=== PATIENT | female | born 1960 | race Caucasian/White ===

== ENCOUNTER → 2018-01-05 | Outpatient (CLI) | payer OTHER | LOC: M.MRI 13:17 | DX: M75.101 Unspecified rotator cuff tear or rupture of right shoulder, not specified as traumatic (principal) ==

== ENCOUNTER → 2018-04-27 | Day surgery (SDC) | payer OTHER ==
[~2018-04-27] MED LIST: ASPIR 8181 MG PO; BENICAR HCT 201 EACH PO; CELEXA40 MG PO; NORCO 5-325 TA1 EACH PO; OXYCODONE HCL 55 MG PO; SYNTHROID125 MC1 PO; ZESTORETIC 20-1 EAC3 PO
--- NOTE | ~2018-04-27 | OP ---
[address] [address] OPERATIVE REPORT Name: DICK AMIN Room: [facility]#: [id number] Admission: 04/27/18 Attend Phys: Sb Zeng DO Discharge: Date of : 64 Report #: [id number] THIS REPORT FOR: //name// CC: Sb Adames DATE OF SERVICE: 04/27/2018 PREOPERATIVE DIAGNOSIS: Right shoulder rotator cuff tear with acromioclavicular arthrosis and impingement. POSTOPERATIVE DIAGNOSES: 1. Right shoulder full thickness rotator cuff tear. 2. Biceps tendinitis with degenerative type labral tear. 3. Impingement syndrome. 4. Acromioclavicular arthrosis. PROCEDURE: 1. Right shoulder arthroscopy. 2. Arthroscopic rotator cuff repair. 3. Biceps tenodesis arthroscopy. 4. Distal clavicle excision. 5. Subacromial decompression. SURGEON: Sb Zeng DO PRECIPITATOR SUPERVISOR: Denis Hansen DO. ESTIMATED BLOOD LOSS: 10 mL. ANESTHESIA: General with interscalene block. COMPLICATIONS: None. DRAINS: None. SPECIMEN REMOVED: None. ANTIBIOTICS: Ancef 2 grams IV preoperatively. CONDITION: The patient is stable to PACU. INDICATIONS FOR PROCEDURE: The patient is a very pleasant 57-year-old female seen in my clinic regarding right shoulder pain that she has had for quite some time. She unfortunately failed conservative treatment including anti-inflammatory medications, steroid injection. MRI was obtained [address] [address] OPERATIVE REPORT Name: DICK AMIN Room: [facility]#: [id number] Admission: 04/27/18 Attend Phys: Sb Zeng DO Discharge: Date of : 64 Report #: [id number] demonstrating a near full thickness rotator cuff tear. This was consistent with her symptoms. Due to failed conservative treatment, I discussed potential benefit of right shoulder arthroscopy, possible rotator cuff repair, possible biceps tenodesis, subacromial decompression, distal clavicle excision. I discussed procedure, risks, benefits, complications, indications in detail with her. Risks discussed include but not limited to infection, neurovascular injury, continued worsening pain, need for further surgery, DVT, PE, repeat tear, continued weakness, DVT, PE and anesthesia complications. She did express understanding and wished to proceed with surgery. DESCRIPTION OF PROCEDURE: After consent was obtained, the patient was taken to the operative suite and placed in the supine position on the operating room table. She was given benefit of general anesthesia, she was placed in beachchair position, all bony prominences were well padded. Right upper extremity sterilely prepped and draped in usual fashion. Preop timeout was obtained to confirm the correct patient, procedure and operative site. Surgery began with standard posterolateral portal incision. The arthroscope was introduced in the posterolateral portal. Diagnostic arthroscopy was performed noting the above findings. She did have a degenerative biceps anchor tear as well as biceps tendinitis. She also had a full thickness rotator cuff tear seen from the glenohumeral joint. This was fairly large in general. At this time, an anterior portal was established using spinal needle technique. I elected to proceed with a biceps tenodesis. We used Loop N' Tack Arthrex technique and fiber snare suture was passed through the biceps tendon. The biceps was then cut and the stump was debrided with a shaver. We then utilized a 2.9 mm PushLock and biceps tenodesis was performed at the top of the bicipital groove. This did have good purchase. The undersurface of the rotator cuff was then debrided with a shaver. We also debrided the anatomic footprint with a shaver to get to good bleeding bone. Attention was then turned subacromially. Lateral portal was established. Subacromial decompression was then performed with a shaver and Epicare wand. Dissection was taken to the AC joint. She did have some subacromial spurring and clavicle spurring at this area. A distal clavicle excision was then performed with a shaver and bur. Attention was then returned to the rotator cuff. The cuff was thoroughly inspected and again fairly large tear, approximately 2 cm in length. We elected to proceed with an Arthrex SpeedBridge fixation. Two medial row anchors were then placed just off the articular surface, both had good purchase. The FiberTape sutures were passed in 4 separate stages. This did have good purchase. These sutures were then crisscrossed and 2 lateral anchors were placed, both had good purchase. This did bring the cuff down nicely to the bone and was quite stable. Final pictures were then taken. Excess sutures were cut. The arm was taken through range of motion and again the tear was stable. The wound was then thoroughly irrigated with sterile saline. All fluid was then drained. Instruments were removed. Incisions were closed with 4-0 nylon in simple interrupted fashion. Sterile dressing was applied. She was placed in slingshot immobilizer postoperatively. [address] [address] OPERATIVE REPORT Name: DICK AMIN Room: [facility]#: [id number] Admission: 04/27/18 Attend Phys: Sb Zeng DO Discharge: Date of : 64 Report #: [id number] She did tolerate the procedure well without complications. She was taken to recovery in stable condition. All needle and sponge counts were correct x 2 at the end of the procedure. By: [id number] Zeng DO /nt
[2018-04-27 07:44] LABS: HEMOGLOBIN 13.5 gm/dL (12.0-15.0); MCH 32.3 pg (26.0-34.0); MCHC 33.7 g/dL (28.0-37.0); MCV 95.8 fL (80.0-100.0); MPV 7.6 fl. (7.2-11.1); RBC 4.17 mil/uL (4.20-5.00); WBC 6.6 thou/uL (4.0-11.0)
[2018-04-27 08:01] LABS: CALCIUM 9.3 mg/dL (8.5-10.1); POTASSIUM 4.2 mmol/L (3.5-5.1)
[2018-04-27 08:06] LABS: ALBUMIN 3.7 g/dL (3.4-5.0); TOTAL BILIRUBIN 0.4 mg/dL (<0.1-1.0)
--- NOTE | 2018-04-27 14:21 | EKG ---
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
== END | disposition home or self-care (01) ==
LOC: M.SUR 07:03
PROVIDERS: Student in an Organized Health Care Education/Training Program
DX: M75.101 Unspecified rotator cuff tear or rupture of right shoulder, not specified as traumatic (principal); M19.011 Primary osteoarthritis, right shoulder; M25.811 Other specified joint disorders, right shoulder; M75.21 Bicipital tendinitis, right shoulder; S43.491A Other sprain of right shoulder joint, initial encounter; I10 Essential (primary) hypertension; E78.5 Hyperlipidemia, unspecified; F17.210 Nicotine dependence, cigarettes, uncomplicated; E03.9 Hypothyroidism, unspecified; F41.9 Anxiety disorder, unspecified; F32.9 Major depressive disorder, single episode, unspecified; E05.00 Thyrotoxicosis with diffuse goiter without thyrotoxic crisis or storm; Z98.890 Other specified postprocedural states; Z79.82 Long term (current) use of aspirin; Z79.899 Other long term (current) drug therapy; X58.XXXA Exposure to other specified factors, initial encounter; Y93.89 Activity, other specified; Y92.89 Other specified places as the place of occurrence of the external cause; Y99.8 Other external cause status